=== PATIENT | female | born 1985 | race African-American/Black ===

== ENCOUNTER 2021-09-22 12:33 | Outpatient (CLI) | payer OTHER, SELFPAY ==
--- NOTE | ~2021-09-22 | US_ITS ---
EXAMINATION: US pelvic complete w TV EXAM DATE: 09/22/2021 13:45 INDICATION: Adnexal tenderness and pelvic pain. TECHNIQUE: Pelvic transabdominal and transvaginal sonogram was performed. There are multiple graysca le and Doppler images available for interpretation. There is no prior study for comparison. FINDINGS: Uterus measures 8.7 x 4.5 x 4.8 cm, and is morphologically normal. Endometrial stripe jim sures 6 mm, within normal limits. There is no free pelvic fluid. Right adnexa: The ovary measures 2.8 x 2.1 x 2.4 cm and is morphologically normal. Ovarian vascular f low confirmed. Left adnexa: The ovary measures 3.4 x 2.3 x 2.0 cm and is morphologically normal. Ovarian vascular fl ow confirmed. IMPRESSION: Unremarkable pelvic ultrasound exam. Reviewed, dictated and finalized at location B. ER OPERATOR
[2021-09-22 14:46] LABS: Hepatitis B Surface Antigen Negative (Negative)
[2021-09-22 14:51] LABS: HAV RESULT Negative (Negative); Hepatitis B Core IgM Result Negative (Negative)
[2021-09-22 14:57] LABS: HIV 1/2 Ab P24 Ag Result Negative (Negative)
[2021-09-22 15:03] LABS: Hepatitis C Virus Antibody Negative (Negative)
[2021-09-25 09:59] LABS: Rapid Plasma Reagin Non-Reactive (NonReactive)
== END 2021-09-22 12:34 | disposition home or self-care (01) ==
LOC: ANHIMG 12:45
PROVIDERS: PCP Internal Medicine Infectious Disease; Visit Provider Obstetrics & Gynecology
DX: Z11.3 Encounter for screening for infections with a predominantly sexual mode of transmission (principal)
CPT/HCPCS: 36415; 76830; 76856; 80074; 86592; 86695; 86696; 86703; G0432